=== PATIENT | female | born 2000 | race African-American/Black ===

== ENCOUNTER 2021-05-01 08:04 | Emergency (ER) | payer OTHER ==
[~2021-05-01] VITALS: Ht 172.7 cm; Wt 55.9 kg
[2021-05-01] MEDS ORDERED: KETOROLAC TROMETHAMINE 30 MG/ML VIAL IV STA (08:32)
[2021-05-01] MEDS ORDERED: SODIUM CHLORIDE 0.9% 1000ML 1,000 ML IV STA (08:32)
[2021-05-01] MEDS ORDERED: KETOROLAC TROMETHAMINE 30 MG/ML VIAL ONE (08:47)
[2021-05-01] MEDS ORDERED: SODIUM CHLORIDE 0.9% 1000ML 1,000 ML ONE (08:47)
[2021-05-01] MEDS ORDERED: FLEET ENEMA133 ML PR (10:03)
[2021-05-01] MEDS ORDERED: COLACE100 MG PO (10:03)
[2021-05-01] MEDS ORDERED: MAGNESIUM CITR296 ML PO (10:03)
[2021-05-01] MEDS ORDERED: SODIUM CHLORIDE 0.9% 50ML 50 ML ONE (10:11)
[2021-05-01] MEDS ORDERED: IOPAMIDOL 370 MG/ML 200 ML INFUS..BTL INJ ONE (10:11)
== END 2021-05-01 10:15 | disposition home or self-care (01) ==
LOC: FSED 08:08
DX: K59.00 Constipation, unspecified (principal)
CPT/HCPCS: 36415; 74177; 80053; 81003; 81025; 83690; 85025; 99284; J1885; J7030; Q9967